=== PATIENT | female | born 2000 | race Caucasian/White ===

== ENCOUNTER 2018-10-21 11:35 | Observation (INO) | payer OTHER ==
[~2018-10-21] VITALS: Ht 157.5 cm; Wt 82.6 kg
[2018-10-21 12:30] VITALS: BP 110/62
[2018-10-21] MEDS ORDERED: BECL10.6 IH (12:36)
[2018-10-21] MEDS ORDERED: ALBU8HFA IH (12:36)
[2018-10-21] MEDS ORDERED: PREN1TAB80 PO (12:36)
== END 2018-10-21 13:50 | disposition home or self-care (01) ==
LOC: 4S 11:35
PROVIDERS: ADMIT Obstetrics & Gynecology; ATTEND Obstetrics & Gynecology
DX: O99.283 Endocrine, nutritional and metabolic diseases complicating pregnancy, third trimester (principal); E86.0 Dehydration; O99.89 Other specified diseases and conditions complicating pregnancy, childbirth and the puerperium; M54.5 Low back pain; O99.513 Diseases of the respiratory system complicating pregnancy, third trimester; J45.909 Unspecified asthma, uncomplicated; Z3A.35 35 weeks gestation of pregnancy
CPT/HCPCS: 81002; G0378

== ENCOUNTER 2018-11-20 06:15 | Inpatient (IN) | payer OTHER ==
[~2018-11-20] VITALS: Ht 154.9 cm; Wt 85.4 kg
[~2018-11-20 06:15] MED LIST: ALBU8.5H8 IH; ALBU8HFA IH; AMOX250C4 PO; BECL10.6 IH; PREN1TAB80 PO
[2018-11-20] MEDS ORDERED: RINGERS SOLUTION,LACTATED 1,000 ML IV ONE (06:43)
[2018-11-20] MEDS ORDERED: OXYTOCIN 30 UNITS/LACT RINGERS 500 ML IV ONE (06:43)
[2018-11-20] MEDS ORDERED: FentaNYL CITRATE-PF 100 MCG/2 ML VIAL IVP PRN (06:45)
[2018-11-20] MEDS ORDERED: METOCLOPRAMIDE HCL 5 MG/ML 2 ML VIAL IVP PRN (06:45)
[2018-11-20] MEDS ORDERED: LIDOCAINE/PF 1% 30 ML VIAL INJ PRN (06:45)
[2018-11-20] MEDS ORDERED: OXYTOCIN 30 UNITS/LACT RINGERS 500 ML IV PRN (06:54)
[2018-11-20 07:19] LABS: BASOPHILS % (AUTO) 0.5 % (0.0-2.0); EOSINOPHILS % (AUTO) 1.7 % (1.0-6.0); HEMATOCRIT 34.7 % (36-46); HEMOGLOBIN 11.4 g/dL (12.0-16.0); LYMPHOCYTES # (AUTO) 1.7 K/uL (1.0-4.8); MEAN CORPUSCULAR HEMOGLOBIN 29.4 pg (26.0-34.0); MEAN CORPUSCULAR HGB CONC 32.9 G/dL (31.0-37.0); MEAN CORPUSCULAR VOLUME 89 fL (80-100); MONOCYTES # (AUTO) 0.8 K/uL (0.1-1.0); MONOCYTES % (AUTO) 9.3 % (2.0-9.0); NEUTROPHILS # (AUTO) 5.5 K/uL (1.8-7.7); NEUTROPHILS % (AUTO) 67.5 % (40.0-70.0); PLATELET COUNT (AUTO) 204 K/uL (150-450); RED BLOOD CELL COUNT(AUTO) 3.89 MIL/uL (4.00-5.20); RED CELL DISTRIBUTION WIDTH 14.9 % (11.5-14.5)
[2018-11-20 07:59] VITALS: BP 134/78
[2018-11-20] MEDS ORDERED: ROPIVACAINE HCL/PF 0.2% 100 ML ED ONE (08:13)
[2018-11-20] MEDS: RINGERS SOLUTION,LACTATED 1,000 ML IV SCH ×2 (08:36→09:32)
[2018-11-20] MEDS ORDERED: ROPIVACAINE HCL/PF 0.2% 100 ML ED PRN (09:01)
[2018-11-20] MEDS ORDERED: DiphenhydrAMINE HCL 50 MG/ML VIAL IVP PRN (09:15)
[2018-11-20] MEDS ORDERED: NALBUPHINE HCL 10 MG/ML VIAL IVP PRN (09:15)
[2018-11-20] MEDS ORDERED: ONDANSETRON HCL 4 MG/2 ML VIAL IVP PRN (09:15)
[2018-11-20] MEDS ORDERED: OXYTOCIN 20 UNITS/LACT RINGERS 1,000 ML IV SCH (11:55)
[2018-11-20] MEDS ORDERED: SENNA/DOCUSATE SODIUM 8.6-50 MG TABLET PO PRN (12:00)
[2018-11-20] MEDS ORDERED: GLYCERIN/WITCH HAZEL LEAF 40 PADS JAR TP PRN (12:00)
[2018-11-20] MEDS ORDERED: BENZOCAINE 20%/MENTHOL 56 GM SPRAY CANISTER TP PRN (12:00)
[2018-11-20] MEDS ORDERED: MAGNESIUM HYDROXIDE SUSPENSION 30 ML UDCUP PO PRN (12:00)
[2018-11-20] MEDS ORDERED: MEASLES/MUMPS/RUBELLA VACCINE, LIVE 0.5 ML/VIAL SQ ONE (12:00)
[2018-11-20] MEDS ORDERED: LANOLIN 7 GM OINTMENT TP PRN (12:00)
[2018-11-20] MEDS: ACETAMINOPHEN/CODEINE 300-30 MG TABLET PO PRN ×2 (13:35→18:13)
[2018-11-20] MEDS ORDERED: METHYLERGONOVINE MALEATE 0.2 MG/ML VIAL IM ONE (18:15)
[2018-11-20] MEDS: IBUPROFEN 600 MG TABLET PO PRN (20:29)
[2018-11-21] MEDS: IBUPROFEN 600 MG TABLET PO PRN (01:15)
[2018-11-21] MEDS: ACETAMINOPHEN/CODEINE 300-30 MG TABLET PO PRN (01:16)
[2018-11-21 06:16] LABS: BASOPHILS % (AUTO) 0.2 % (0.0-2.0); EOSINOPHILS % (AUTO) 1.9 % (1.0-6.0); HEMATOCRIT 31.8 % (36-46); HEMOGLOBIN 10.5 g/dL (12.0-16.0); LYMPHOCYTES # (AUTO) 2.2 K/uL (1.0-4.8); LYMPHOCYTES % (AUTO) 24.9 % (22.0-44.0); MEAN CORPUSCULAR HEMOGLOBIN 29.9 pg (26.0-34.0); MEAN CORPUSCULAR HGB CONC 32.9 G/dL (31.0-37.0); MEAN CORPUSCULAR VOLUME 91 fL (80-100); MONOCYTES # (AUTO) 0.8 K/uL (0.1-1.0); MONOCYTES % (AUTO) 9.5 % (2.0-9.0); NEUTROPHILS # (AUTO) 5.6 K/uL (1.8-7.7); NEUTROPHILS % (AUTO) 63.5 % (40.0-70.0); PLATELET COUNT (AUTO)-OB 186 K/uL (150-450); RED CELL DISTRIBUTION WIDTH 15.1 % (11.5-14.5)
[2018-11-21] MEDS ORDERED: IBUP-2071 PO (12:13)
[2018-11-21] MEDS ORDERED: DSS100 PO (12:14)
[2018-11-21] MEDS ORDERED: FERR-89 PO (12:15)
== END 2018-11-21 12:40 | disposition home or self-care (01) | DRG 560 ==
LOC: 4S 06:15 → PREOBSVTOIN 01-25 06:56
PROVIDERS: ADMIT Obstetrics & Gynecology; ATTEND Obstetrics & Gynecology
PROC: 10E0XZZ Delivery of Products of Conception, External Approach (ICD-10-PCS; principal; 2018-11-20)
PROC: 0UQMXZZ Repair Vulva, External Approach (ICD-10-PCS; 2018-11-20)
PROC: 3E0R3BZ Introduction of Anesthetic Agent into Spinal Canal, Percutaneous Approach (ICD-10-PCS; 2018-11-20)
PROC: 00HU33Z Insertion of Infusion Device into Spinal Canal, Percutaneous Approach (ICD-10-PCS; 2018-11-20)
DX: O69.81X0 Labor and delivery complicated by cord around neck, without compression, not applicable or unspecified (principal); O71.82 Other specified trauma to perineum and vulva; Z3A.40 40 weeks gestation of pregnancy; Z37.0 Single live birth
CPT/HCPCS: 86850; 86900; 86901; 90707; J2590; J2795; J7120

== ENCOUNTER 2025-05-11 20:01 | Emergency (ER) | payer OTHER ==
[~2025-05-11] VITALS: Ht 154.9 cm; Wt 86.4 kg
[~2025-05-11 20:01] MED LIST changes: -ALBU8.5H8 IH; -ALBU8HFA IH; -AMOX250C4 PO; -BECL10.6 IH; +DSS100 PO; +FERR325T27 PO; +IBUP-1493 PO
[2025-05-11 20:20] VITALS: TEMP 98.2
[2025-05-11 23:04] LABS: APPEARANCE,URINE CLEAR (CLEAR); GLUCOSE, URINE (UA) NEGATIVE (NEGATIVE); LEUKOCYTE ESTERASE ,URINE LARGE (NEGATIVE); NITRATE,URINE NEGATIVE (NEGATIVE); OCCULT BLOOD,URINE MODERATE (NEGATIVE); SPECIFIC GRAVITIY, URINE 1.005 (1.003-1.030)
[2025-05-11 23:14] LABS: SQUAMOUS EPITHELIAL CELL,UR Rare /LPF (None Seen)
[2025-05-11 23:39] VITALS: BP 118/79; PULSE 89; RESP 15; O2SAT 98
[2025-05-11] MEDS ORDERED: CEPH-558 PO (23:44)
[2025-05-11] MEDS: CEPHALEXIN MONOHYDRATE 500 MG CAPSULE PO ONE (23:53)
== END 2025-05-11 23:57 | disposition home or self-care (01) ==
LOC: EMS 20:10
DX: N39.0 Urinary tract infection, site not specified (principal); J45.909 Unspecified asthma, uncomplicated; F17.210 Nicotine dependence, cigarettes, uncomplicated; Z79.1 Long term (current) use of non-steroidal anti-inflammatories (NSAID)
CPT/HCPCS: 81001; 84703; 87086; 99283